=== PATIENT | male | born 1990 | race Caucasian/White ===

== ENCOUNTER 2017-07-27 08:58 | Emergency (ER) | payer SELFPAY ==
[~2017-07-27] VITALS: Ht 170.2 cm; Wt 68.0 kg
[~2017-07-27 08:58] MED LIST: NAPROXEN500 MG PO; NOHOMEMEDS
[2017-07-27 09:39] LABS: HEMATOCRIT 47.7 % (38.0-50.0); MCH 30.6 PG (29.0-34.0); MCHC 35.6 G/DL (30.0-36.0); MCV 85.9 FL (86-99); MEAN PLAT.VOLUME 9.1 uM^3 (9.0-12.4); PLATELET COUNT 312 K/uL (156-360); RBC DIS.WIDTH-CV 12.3 % (11.8-14.6); RBC DIS.WIDTH-SD 38.3 % (39-53); RED BLOOD COUNT 5.55 M/uL (4.00-5.50); WHITE BLOOD COUNT 5.9 K/uL (4.1-10.2)
[2017-07-27 09:50] LABS: CHLORIDE 102 mEq/L (99-109); POTASSIUM 4.2 mEq/L (3.7-5.4); SODIUM 138 mEq/L (136-147)
[2017-07-27 09:51] LABS: GLUCOSE 97 mg/dL (70-99)
[2017-07-27 09:53] LABS: ANION GAP 12 MEQ/L (2-14)
[2017-07-27 09:55] LABS: GFR ESTIMATE (CALCULATED) > 59 mL/min/ (58.99-99999)
[2017-07-27 09:56] LABS: UREA NITROGEN (BUN) 18 mg/dL (9-23)
[2017-07-27 10:00] LABS: TROP-I INTERPRETATION NEGATIVE; TROPONIN-I < 0.01 ng/mL (0.0-0.30)
[2017-07-27] MEDS ORDERED: NAPROSYN500 MG PO (11:51)
[2017-07-27 12:08] VITALS: BP 120/89
== END 2017-07-27 12:08 | disposition home or self-care (01) ==
LOC: EME 08:58
DX: R07.89 Other chest pain (principal); R11.0 Nausea; R05 Cough; I45.10 Unspecified right bundle-branch block; Z87.442 Personal history of urinary calculi; F17.200 Nicotine dependence, unspecified, uncomplicated
CPT/HCPCS: 71020; 80048; 84484; 85027; 93005